=== PATIENT | male | born 1955 | race Caucasian/White ===

== ENCOUNTER 2018-01-13 19:13 | Observation (INO) | payer MEDICAID ==
[~2018-01-13] VITALS: Ht 177.8 cm; Wt 72.7 kg
[~2018-01-13 19:13] MED LIST: HYDR-569 PO
[2018-01-13 20:15] LABS: BASOPHILS # (AUTO) 0.1 X10'3 (0-0.2); BASOPHILS % (AUTO) 1.3 % (0-1); EOSINOPHILS # (AUTO) 0.1 X10'3 (0-0.9); EOSINOPHILS % (AUTO) 1.2 % (0-6); HEMATOCRIT 44.3 % (42.0-52.0); HEMOGLOBIN 15.1 g/dl (14.0-17.9); LYMPHOCYTES # (AUTO) 1.5 X10'3 (1.1-4.8); LYMPHOCYTES % (AUTO) 20.4 % (21-51); MEAN CORPUSCULAR HEMOGLOBIN 32.2 PG (27.0-31.0); MEAN CORPUSCULAR HGB CONC 34.2 % (33.0-36.5); MEAN CORPUSCULAR VOLUME 94.2 FL (78-98); MEAN PLATELET VOLUME 7.4 FL (7.4-10.4); MONOCYTES # (AUTO) 0.8 X10'3 (0-0.9); MONOCYTES % (AUTO) 10.6 % (2-12); NEUTROPHILS % (AUTO) 66.5 % (42-75); PLATELET COUNT 169 X10'3 (140-440); RED CELL DISTRIBUTION WIDTH 13.7 % (11.5-14.5); WHITE BLOOD COUNT 7.6 X10'3 (4.5-11.0)
[2018-01-13 20:29] LABS: ALANINE AMINOTRANSFERASE 114 U/L (12-78); ALBUMIN/GLOBULIN RATIO 0.6 (1.1-1.5); ALKALINE PHOSPHATASE 156 IU/L (46-116); ANION GAP 13 (8-16); ASPARTATE AMINO TRANSFERASE 197 U/L (10-37); BILIRUBIN,TOTAL 0.5 MG/DL (0.1-1.0); BLOOD UREA NITROGEN 17 MG/DL (7-18); BUN/CREATININE RATIO 20.2 (5.4-32.0); CALCIUM 8.9 MG/DL (8.5-10.1); CHLORIDE 105 MMOL/L (99-107); CREATININE 0.84 MG/DL (0.60-1.10); ETHANOL 0.062 GM/DL (0.0-0.010); GLUCOSE 95 MG/DL (70-104); POTASSIUM 3.5 MMOL/L (3.5-5.1); SODIUM 144 MMOL/L (135-145); TOTAL CARBON DIOXIDE 26.1 MMOL/L (24-32); TOTAL PROTEIN 8.3 G/DL (6.4-8.2); eGFR > 90 ML/MIN
[2018-01-13 20:54] LABS: CLARITY,URINE CLEAR (Clear); GLUCOSE, URINE NEGATIVE (Neg); KETONES,URINE NEGATIVE (Neg); LEUKOCYTE ESTERASE ,URINE NEGATIVE (Neg); NITRITES, URINE NEGATIVE (Neg); OCCULT BLOOD,URINE TRACE-INTACT (Neg); PROTEIN,URINE 30 mg/dl (Neg)
[2018-01-13 20:55] LABS: COLOR,URINE DARK YELLOW (Yellow); UA COLLECTION TYPE STRAIGHT CATH
[2018-01-13 21:01] LABS: BACTERIA,URINE FEW /HPF (Neg); WBC,URINE 0-4 /HPF (0-4)
[2018-01-13 21:02] LABS: MUCUS STRANDS MANY /LPF (Neg); SQUAMOUS EPITHELIAL CELL,UR NONE SEEN /LPF (FEW)
[2018-01-13 21:11] LABS: URINE AMPHETAMINE SCREEN POSITIVE (Neg); URINE BARBITUATE SCREEN NEGATIVE (Neg); URINE BENZODIAZEPINES SCREEN NEGATIVE (Neg); URINE CANNABINOID SCREEN POSITIVE (Neg); URINE COCAINE SCREEN NEGATIVE (Neg); URINE METHADONE SCREEN NEGATIVE (Neg); URINE OPIATE SCREEN POSITIVE (Neg); URINE PHENCYCLIDINE SCREEN NEGATIVE (Neg)
[2018-01-13] MEDS ORDERED: normal saline 1000ml 1,000 ML IV ONE ×2 (21:15)
[2018-01-13] MEDS ORDERED: LORazepam 2 mg/ml vial IV PRN (22:20)
[2018-01-13] MEDS ORDERED: mag hydrox/Alum hydrox/simeth 30ml oral suspension PO PRN (22:20)
[2018-01-13] MEDS ORDERED: dextrose 50%-water 50ml dispensing syringe IV PRN (22:20)
[2018-01-13] MEDS ORDERED: ondansetron/PF 4mg/2ml inj IV PRN (22:20)
[2018-01-13] MEDS ORDERED: magnesium hydroxide 30ml (MOM) UD suspension PO PRN (22:20)
[2018-01-13] MEDS ORDERED: acetaminophen 325mg tablet PO PRN (22:20)
[2018-01-14] MEDS ORDERED: NO HOME MEDS (02:50)
[2018-01-14 07:33] LABS: BASOPHILS # (AUTO) 0.1 X10'3 (0-0.2); BASOPHILS % (AUTO) 0.9 % (0-1); EOSINOPHILS # (AUTO) 0.1 X10'3 (0-0.9); EOSINOPHILS % (AUTO) 0.7 % (0-6); HEMATOCRIT 41.7 % (42.0-52.0); HEMOGLOBIN 14.2 g/dl (14.0-17.9); LYMPHOCYTES # (AUTO) 1.7 X10'3 (1.1-4.8); LYMPHOCYTES % (AUTO) 19.5 % (21-51); MEAN CORPUSCULAR HGB CONC 34.1 % (33.0-36.5); MEAN PLATELET VOLUME 7.6 FL (7.4-10.4); MONOCYTES # (AUTO) 0.6 X10'3 (0-0.9); MONOCYTES % (AUTO) 7.5 % (2-12); NEUTROPHILS # (AUTO) 6.2 X10'3 (1.8-7.7); NEUTROPHILS % (AUTO) 71.4 % (42-75); PLATELET COUNT 138 X10'3 (140-440); RED BLOOD COUNT 4.44 X10'6 (4.70-6.10); RED CELL DISTRIBUTION WIDTH 13.8 % (11.5-14.5); WHITE BLOOD COUNT 8.6 X10'3 (4.5-11.0)
[2018-01-14 07:38] LABS: ALBUMIN 2.6 G/DL (3.4-5.0); ANION GAP 7 (8-16); BLOOD UREA NITROGEN 13 MG/DL (7-18); BUN/CREATININE RATIO 22.4 (5.4-32.0); CALCIUM 8.4 MG/DL (8.5-10.1); CHLORIDE 105 MMOL/L (99-107); CREATININE 0.58 MG/DL (0.60-1.10); GLUCOSE 120 MG/DL (70-104); POTASSIUM 3.8 MMOL/L (3.5-5.1); SODIUM 138 MMOL/L (135-145); TOTAL CARBON DIOXIDE 26.4 MMOL/L (24-32); eGFR > 90 ML/MIN
[2018-01-14] MEDS ORDERED: enoxaparin 30mg/0.3ml syringe SUBCUT SCH (08:00)
[2018-01-14] MEDS ORDERED: thiamine inj. 100 MG, magnesium sulf injection 2 GM, MVI, adult No.4 with vit. K 10 ML ... IV SCH ×4 (08:00)
[2018-01-14 10:20] VITALS: BP 142/89
[2018-01-14] MEDS ORDERED: ipratropium/albuterol 3ml nebule NEB ONE (12:05)
[2018-01-15] MEDS ORDERED: LORazepam 1 MG tablet PO PRN (22:20)
[2018-01-15] MEDS ORDERED: LORazepam 2 mg/ml vial IV PRN (22:20)
[2018-01-17] MEDS ORDERED: LORazepam 2 mg/ml vial IV PRN (22:20)
[2018-01-17] MEDS ORDERED: LORazepam 1 MG tablet PO PRN (22:20)
== END 2018-01-14 13:35 | disposition home or self-care (01) ==
LOC: ER 19:15 → ED HOLD 22:19
PROVIDERS: ADMIT Family Medicine; ATTEND Internal Medicine
DX: T43.621A Poisoning by amphetamines, accidental (unintentional), initial encounter (principal); T40.1X1A Poisoning by heroin, accidental (unintentional), initial encounter; G92 Toxic encephalopathy; R94.5 Abnormal results of liver function studies; Y92.89 Other specified places as the place of occurrence of the external cause; Z87.891 Personal history of nicotine dependence
CPT/HCPCS: 36415; 70450; 71045; 80048; 80053; 80305; 80320; 81001; 82140; 83735; 84100; 85025; 87070; 94640; 94760; 96361; 96365; 96366; 99285; A4353; G0378; J3411; J3475; J7030; J7060

== ENCOUNTER 2021-09-22 21:44 | Emergency (ER) | payer MEDICARE, MEDICAID ==
[~2021-09-22] VITALS: Ht 175.3 cm; Wt 60.0 kg
[~2021-09-22 21:44] MED LIST changes: -HYDR-569 PO; +NO HOME MEDS
[2021-09-22 21:47] VITALS: BP 158/106
[2021-09-22] MEDS ORDERED: HYDR-3965 PO (23:15)
[2021-09-22] MEDS ORDERED: NAPR-56 PO (23:15)
[2021-09-22] MEDS ORDERED: SULF1TAB49 PO (23:15)
[2021-09-22] MEDS ORDERED: HYDROcodone/acetaminophen 5mg/325mg tablet PO ONE (23:20)
== END 2021-09-22 23:49 | disposition home or self-care (01) ==
LOC: ER 21:45
DX: M70.21 Olecranon bursitis, right elbow (principal); G89.29 Other chronic pain; F15.10 Other stimulant abuse, uncomplicated; F11.10 Opioid abuse, uncomplicated; Y93.89 Activity, other specified
CPT/HCPCS: 99283

== ENCOUNTER 2021-09-24 09:32 | Emergency (ER) | payer MEDICARE, MEDICAID ==
[~2021-09-24] VITALS: Ht 175.3 cm; Wt 63.6 kg
[~2021-09-24 09:32] MED LIST changes: +HYDR-3965 PO; +NAPR-56 PO; +SULF1TAB49 PO
[2021-09-24 09:42] VITALS: BP 139/72
--- NOTE | 2021-09-24 12:21 | NUR ---
PATIENT HERE FOR WOUND RECHECK FOR RIGHT FOREARM CELLULITIS. PATIENT IS STILL TAKING ANTIBIOTICS AND REPORTS THAT WOUND IS IMPROVING. REDNESS WITH HEALING ABRASION NOTED TO POSTERIOR RIGHT FOREARM.
== END 2021-09-24 12:48 | disposition home or self-care (01) ==
LOC: ER 09:33
DX: M79.631 Pain in right forearm (principal); R22.31 Localized swelling, mass and lump, right upper limb; F11.90 Opioid use, unspecified, uncomplicated; F15.90 Other stimulant use, unspecified, uncomplicated; G89.29 Other chronic pain; Z88.0 Allergy status to penicillin; Z79.899 Other long term (current) drug therapy
CPT/HCPCS: 99281

== ENCOUNTER 2021-11-06 18:56 | Emergency (ER) | payer MEDICARE, MEDICAID ==
[~2021-11-06] VITALS: Ht 175.3 cm; Wt 57.7 kg
[~2021-11-06 18:56] MED LIST changes: -HYDR-3965 PO; -NAPR-56 PO; -SULF1TAB49 PO
[2021-11-06 21:56] LABS: URINE AMPHETAMINE SCREEN POSITIVE (Neg); URINE BARBITUATE SCREEN NEGATIVE (Neg); URINE BENZODIAZEPINES SCREEN NEGATIVE (Neg); URINE CANNABINOID SCREEN NEGATIVE (Neg); URINE COCAINE SCREEN NEGATIVE (Neg); URINE METHADONE SCREEN NEGATIVE (Neg); URINE OPIATE SCREEN POSITIVE (Neg); URINE PHENCYCLIDINE SCREEN NEGATIVE (Neg)
[2021-11-06 22:22] VITALS: BP 125/87
== END 2021-11-06 22:23 | disposition home or self-care (01) ==
LOC: ER 18:56
DX: T51.8X1A Toxic effect of other alcohols, accidental (unintentional), initial encounter (principal); T40.1X1A Poisoning by heroin, accidental (unintentional), initial encounter; R51.9 Headache, unspecified; F12.90 Cannabis use, unspecified, uncomplicated; F15.90 Other stimulant use, unspecified, uncomplicated; F11.90 Opioid use, unspecified, uncomplicated; Z88.0 Allergy status to penicillin; Y92.89 Other specified places as the place of occurrence of the external cause; G89.29 Other chronic pain
CPT/HCPCS: 70450; 80305; 93005; 99285